=== PATIENT | female | born 1980 | race Two or more races ===

== ENCOUNTER → 2016-06-02 | Outpatient (CLI) | payer OTHER ==
[~2016-06-02] MED LIST: ALBUTEROL17 GM INH; ALOGLIPTIN25 MG PO; BUTALB-ACETAMI1 EACH PO; CARDURA8 MG PO; FIORICET 50-301 EACH PO; FIORINAL 50-321 EACH PO; HUMALOG100 U/M2; HYDROCHLOROTH12.5 MG PO; KCL PO; LEVEMIR FL100 UNIT/1; LIPITOR20 MG PO; LORTAB 5-325 M1 EACH PO; LORTAB 7.5-5001 TAB PO; LOVAZA1 GM PO; METFORMIN HCL500 M1 PO; METOPROLOL/HCTZ PO; OMEPRAZOLE40 M1 PO; TOPAMAX50 MG PO; TOPROL XL100 MG PO; TRIAMTERENE-HC1 EACH PO; ZESTRIL5 MG PO; ZOFRAN PO; ZOLOFT50 MG PO
--- NOTE | ~2016-06-02 | CR181 ---
[facility] A Service of [facility] RADIOLOGY TEXT RESULTS PATIENT: ARLENE YARBROUGH LOCATION: [facility] : [birth year] UNIT #: [id number] AGE: [address]: ALETA AWAN SEX: F ORDER DR: [id number] [facility] [address] [place], [place] [address] [id number] O MR#: [id number] Acc #: [id number] NAME: ARLENE YARBROUGH : 1980 SEX: F STUDY DATE/TIME: 06/02/2016 13:20 UNIT: [facility] ROOM: STUDY DESCRIPTION: CR Lumbar Spine 2 or 3 Views Attending Physician: Rachel Willis Referring Physician: Rachel Willis Ordering Physician: Rachel Willis Primary Care Physician: Alona Wang M.D. MEDICAL IMAGING REPORT This report is preliminary unless electronic signature is present EXAM Lumbar spine 3 views 06/02/2016 HISTORY Low back pain for 1 month with no known injury. FINDINGS AP and lateral projections of the lumbar segment show good mineralization of both anterior and posterior elements. They are all anatomically normal without indication of fracture, dislocation, or malignant change of a sclerotic or lytic type. There is no congenital defect noted. The sacroiliac joints are normal. IMPRESSION Normal lumbar spine. Dictated by... Surendra Mayo M.D. THIS IS AN ELECTRONICALLY VERIFIED REPORT Surendra Mayo M.D. at 06/03/2016 10:32 AM KRT/to TD: 06/02/2016 18:45 JOB #: [id number] MEDICAL IMAGING REPORT Page 1 of 1 COPY
== END | disposition home or self-care (01) ==
LOC: CRAD 12:39
DX: M54.5 Low back pain (principal)
CPT/HCPCS: 72100

== ENCOUNTER → 2016-07-01 | Outpatient (CLI) | payer OTHER ==
--- NOTE | ~2016-07-01 | US5 ---
[facility] A Service of [facility] RADIOLOGY TEXT RESULTS PATIENT: ARLENE YARBROUGH LOCATION: [facility] : 80 UNIT #: [id number] AGE: [address]: ALETA AWAN SEX: F ORDER DR: [id number] [facility] [address] [place], [place] [address] [id number] O MR#: [id number] Acc #: [id number] NAME: ARLENE YARBROUGH : 1980 SEX: F STUDY DATE/TIME: 07/01/2016 11:12 UNIT: [facility] ROOM: STUDY DESCRIPTION: US Abdominal Complete Attending Physician: Rachel Willis Referring Physician: Rachel Willis Ordering Physician: Rachel Willis Primary Care Physician: Alona Wang M.D. MEDICAL IMAGING REPORT This report is preliminary unless electronic signature is present EXAM Abdominal ultrasound complete, 07/01/2016 HISTORY Abdomen pain and swelling for 1 year. Cholecystectomy. FINDINGS Liver demonstrates an increase in echotexture with attenuation of the ultrasound beam characteristic of fatty infiltration. No cystic or solid mass lesions were seen in the liver. The intra and extrahepatic bile ducts are not dilated. The gallbladder is surgically absent as per patient history. The common duct measures 3 mm. The pancreas is normal. The spleen is minimally enlarged measuring 13.7 cm in greatest diameter. The visualized portions of the abdominal aorta and inferior vena cava are within normal limits. The kidneys are normal bilaterally. IMPRESSION 1. Fatty infiltration of the liver. 2. Surgical absence of the gallbladder. 3. Mild splenomegaly. Dictated by... Surendra Mayo M.D. THIS IS AN ELECTRONICALLY VERIFIED REPORT Surendra Mayo M.D. at 07/02/2016 8:05 AM AR/maryanne TD: 07/01/2016 22:13 JOB #: [id number] [facility] A Service of [facility] RADIOLOGY TEXT RESULTS PATIENT: ARLENE YARBROUGH LOCATION: [place] : 80 UNIT #: [id number] AGE: [address]: ALETA AWAN SEX: F ORDER DR: MEDICAL IMAGING REPORT Page 1 of 1 COPY
== END | disposition home or self-care (01) ==
LOC: CGUS 10:30
DX: R10.9 Unspecified abdominal pain (principal); R19.00 Intra-abdominal and pelvic swelling, mass and lump, unspecified site; K76.0 Fatty (change of) liver, not elsewhere classified; R16.1 Splenomegaly, not elsewhere classified; Z90.49 Acquired absence of other specified parts of digestive tract
CPT/HCPCS: 76700

== ENCOUNTER 2016-07-06 12:38 | Emergency (ER) | payer OTHER ==
[~2016-07-06 12:38] MED LIST changes: -ALOGLIPTIN25 MG PO; -BUTALB-ACETAMI1 EACH PO; -FIORICET 50-301 EACH PO; -HYDROCHLOROTH12.5 MG PO; -KCL PO; -LIPITOR20 MG PO; -LORTAB 5-325 M1 EACH PO; -LOVAZA1 GM PO; -METFORMIN HCL500 M1 PO; -METOPROLOL/HCTZ PO; -OMEPRAZOLE40 M1 PO; -TOPROL XL100 MG PO; -ZESTRIL5 MG PO; -ZOFRAN PO
[2016-07-06 13:22] LABS: BASOPHIL% 0.7 % (0-2.5); EOSINOPHIL# 0.1 X10e3 (0-0.7); HEMATOCRIT 36.6 % (35.0-45.0); HEMOGLOBIN 12.4 gm/dL (12.0-16.0); LYMPHOCYTE# 2.1 X10e3 (1.0-3.5); LYMPHOCYTE% 38.8 % (17.0-45.0); MEAN CELL VOLUME 84.9 FL (83-96); MEAN CORPUSCULAR HEMOGLOBIN 28.7 PG (28-34); MEAN CORPUSCULAR HGB CONC 33.8 g/dL (30-36); MEAN PLATELET VOLUME 8.3 FL (6.5-11.5); MONOCYTE# 0.4 X10e3 (0-1.0); MONOCYTE% 6.6 % (3.0-12.0); NEUTROPHIL# 2.9 X10e3 (1.5-7.1); NEUTROPHIL% 52.9 % (40-75); PLATELET COUNT 216 X10e3 (140-420); RED BLOOD COUNT 4.31 X10e (3.90-5.30); RED CELL DISTRIBUTION WIDTH 13.9 % (11.0-15.5); WHITE BLOOD COUNT 5.5 X10e3 (4.0-10.5)
[2016-07-06 13:23] LABS: DIFF IND NO
[2016-07-06 13:51] LABS: URINE SOURCE CLEAN CATCH
[2016-07-06 13:54] LABS: ALBUMIN SERUM 3.8 g/dL (3.5-5.0); BILIRUBIN, DIRECT 0.1 mg/dL (0.0-0.2); BILIRUBIN,INDIRECT 0.4 mg/dL (0.0-0.9); BILIRUBIN,TOTAL 0.5 mg/dL (0.2-2.0); BUN/CREATININE RATIO 16.25; CREATININE SERUM 0.8 mg/dL (0.6-1.4); GLOM FILT RATE Estimated 94.9 mL/min (>60); POTASSIUM 3.5 mmol/L (3.5-5.1); PROTEIN TOTAL SERUM 7.4 g/dL (6.0-8.3)
[2016-07-06 14:02] LABS: URINE APPEARANCE CLOUDY; URINE BLOOD NEG (NEG); URINE COLOR DK YELLOW; URINE GLUCOSE NEG (NEG); URINE KETONE 1+ (NEG); URINE LEUKOCYTE ESTERASE TRACE (NEG); URINE NITRATE NEG (NEG); URINE PROTEIN NEG (NEG); URINE SPECIFIC GRAVITY 1.027 (1.003-1.035)
[2016-07-06 14:04] LABS: CULTURE INDICATED? YES; URINE BACTERIA AUWI 4+ (NEGATIVE); URINE SQUAMOUS EPITHELIAL CELL FEW /[HPF]; UWBCS1 AUWI 25-50 (0-5)
[2016-07-06 14:10] LABS: U HYALINE CASTS AUWI 0-2 /[LPF]
[2016-07-06 14:11] LABS: URINE BILIRUBIN NEG (NEG)
[2016-11-04] MEDS ORDERED: FIORICET 50-301 EACH PO (01:05)
[2016-11-04] MEDS ORDERED: LIPITOR20 MG PO (01:06)
[2016-11-04] MEDS ORDERED: HYDROCHLOROTH12.5 MG PO (01:06)
[2016-11-04] MEDS ORDERED: ALOGLIPTIN25 MG PO (01:06)
[2016-11-04] MEDS ORDERED: TRIAMTERENE-HC1 EACH PO (01:07)
[2016-11-04] MEDS ORDERED: OMEPRAZOLE40 M1 PO (01:08)
[2016-11-04] MEDS ORDERED: BUTALB-ACETAMI1 EACH PO (01:08)
[2016-11-04] MEDS ORDERED: METOPROLOL/HCTZ PO (01:09)
[2016-11-04] MEDS ORDERED: ZOFRAN PO (01:09)
[2016-11-04] MEDS ORDERED: KCL PO (01:10)
[2016-11-04] MEDS ORDERED: ALBUTEROL17 GM INH (01:10)
[2016-11-06] MEDS ORDERED: TOPROL XL100 MG PO (15:27)
[2016-11-06] MEDS ORDERED: ZESTRIL5 MG PO (15:29)
[2016-11-06] MEDS ORDERED: LOVAZA1 GM PO (15:31)
[2016-11-07] MEDS ORDERED: METFORMIN HCL500 M1 PO (11:47)
[2016-11-07] MEDS ORDERED: LORTAB 5-325 M1 EACH PO (11:48)
== END 2016-07-06 14:59 | disposition home or self-care (01) ==
LOC: CED 12:38
PROVIDERS: Emergency Medicine
DX: N10 Acute pyelonephritis (principal); R20.2 Paresthesia of skin; E11.9 Type 2 diabetes mellitus without complications; I10 Essential (primary) hypertension; F17.200 Nicotine dependence, unspecified, uncomplicated; Z90.49 Acquired absence of other specified parts of digestive tract; Z98.890 Other specified postprocedural states; Z79.899 Other long term (current) drug therapy; Z88.5 Allergy status to narcotic agent
CPT/HCPCS: 36415; 80048; 80076; 81003; 83690; 84703; 85025; 87086; 96374; 96376; 99284; J2270

== ENCOUNTER → 2016-08-25 | Outpatient (CLI) | payer OTHER ==
[~2016-08-25] MED LIST changes: +ALOGLIPTIN25 MG PO; +BUTALB-ACETAMI1 EACH PO; +FIORICET 50-301 EACH PO; +HYDROCHLOROTH12.5 MG PO; +KCL PO; +LIPITOR20 MG PO; +LORTAB 5-325 M1 EACH PO; +LOVAZA1 GM PO; +METFORMIN HCL500 M1 PO; +METOPROLOL/HCTZ PO; +OMEPRAZOLE40 M1 PO; +TOPROL XL100 MG PO; +ZESTRIL5 MG PO; +ZOFRAN PO
--- NOTE | ~2016-08-25 | CT4 ---
[facility] A Service of [facility] RADIOLOGY TEXT RESULTS PATIENT: ARLENE YARBROUGH LOCATION: [facility] : 80 UNIT #: [id number] AGE: [address]: Alona Wang MD SEX: F ORDER DR: [id number] [address] [address] [id number] O MR#: [id number] Acc #: [id number] NAME: ARLENE YARBROUGH : 1980 SEX: F STUDY DATE/TIME: 08/25/2016 13:05 UNIT: [facility] ROOM: STUDY DESCRIPTION: CT Abd and Pelv Wo Cont Attending Physician: Alona Wang M.D. Referring Physician: Alona Wang M.D. Ordering Physician: Alona Wang M.D. Primary Care Physician: Alona Wang M.D. MEDICAL IMAGING REPORT This report is preliminary unless electronic signature is present EXAM CT abdomen and pelvis without contrast. INDICATION Generalized upper abdominal pain and swelling for the past several months. PROCEDURE Unenhanced CT of the abdomen and pelvis. This CT exam was performed with one or more of the following radiation dose reduction techniques: automatic exposure control, adjustment of mA and/or kV according to patient size, and iterative reconstruction. COMPARISON STUDIES 10/08/2008 FINDINGS Included lung bases are clear. The liver enlarged measuring 22.6 cm. There is diffuse hepatic steatosis. The spleen enlarged 14.5 cm. Kidneys, adrenal glands, pancreas unremarkable. Previous cholecystectomy. Appendix is unremarkable. Bowel loops nondilated. PELVIS WITHOUT CONTRAST: No pelvic mass or fluid. No aggressive appearing bone lesion. IMPRESSION 1. No acute findings. 2. Hepatosplenomegaly with significant steatosis. Dictated by... [facility] A Service of [facility] RADIOLOGY TEXT RESULTS PATIENT: ARLENE YARBROUGH LOCATION: [facility] : 80 UNIT #: [id number] AGE: [address]: Alona Wang MD SEX: F ORDER DR: Beau Nicholas M.D. THIS IS AN ELECTRONICALLY VERIFIED REPORT Beau Nicholas M.D. at 08/26/2016 7:09 AM Justine TD: 08/25/2016 17:20 JOB #: [id number] MEDICAL IMAGING REPORT Page 1 of 1 COPY
== END | disposition home or self-care (01) ==
LOC: CCAT 12:39
DX: R10.84 Generalized abdominal pain (principal); R18.8 Other ascites; K76.0 Fatty (change of) liver, not elsewhere classified; R16.2 Hepatomegaly with splenomegaly, not elsewhere classified
CPT/HCPCS: 74176

== ENCOUNTER → 2016-10-22 | Outpatient (CLI) | payer OTHER ==
--- NOTE | ~2016-10-22 | CR173 ---
[facility] A Service of [facility] RADIOLOGY TEXT RESULTS PATIENT: ARLENE YARBROUGH LOCATION: [facility] : 80 UNIT #: [id number] AGE: [address]: Joyce Iqbal MD SEX: F ORDER DR: [id number] [facility] [address] [place], [place] [address] [id number] O MR#: [id number] Acc #: [id number] NAME: ARLENE YARBROUGH : 1980 SEX: F STUDY DATE/TIME: 10/22/2016 18:57 UNIT: [facility] ROOM: STUDY DESCRIPTION: CR Knee 3 Views Rt Attending Physician: Joyce Iqbal M.D. Referring Physician: Joyce Iqbal M.D. Ordering Physician: Joyce Iqbal M.D. Primary Care Physician: Alona Wang M.D. MEDICAL IMAGING REPORT This report is preliminary unless electronic signature is present EXAM Right knee 3 views 10/22/2016 HISTORY Right knee pain for 1 year, osteoarthritis right knee. No known injury. FINDINGS AP and lateral projection of the knee shows smooth articular anatomy without indication of fracture or dislocation at the major weight-bearing surface of the knee. There is no indication of radiopaque foreign body about the knee surface or joint effusion. IMPRESSION Normal right knee. Dictated by... Surendra Mayo M.D. THIS IS AN ELECTRONICALLY VERIFIED REPORT Surendra Mayo M.D. at 10/24/2016 7:27 AM Evelyn TD: 10/23/2016 11:17 JOB #: [id number] MEDICAL IMAGING REPORT Page 1 of 1 COPY
--- NOTE | ~2016-10-22 | CR172 ---
[facility] A Service of [facility] RADIOLOGY TEXT RESULTS PATIENT: ARLENE YARBROUGH LOCATION: [facility] : 80 UNIT #: [id number] AGE: [address]: Joyce Iqbal MD SEX: F ORDER DR: [id number] [facility] [address] [place], [place] [address] [id number] O MR#: [id number] Acc #: [id number] NAME: ARLENE YARBROUGH : 1980 SEX: F STUDY DATE/TIME: 10/22/2016 18:57 UNIT: [facility] ROOM: STUDY DESCRIPTION: CR Knee 3 Views Lt Attending Physician: Joyce Iqbal M.D. Referring Physician: Joyce Iqbal M.D. Ordering Physician: Joyce Iqbal M.D. Primary Care Physician: Alona Wang M.D. MEDICAL IMAGING REPORT This report is preliminary unless electronic signature is present EXAM Left knee 3 views 10/22/2016 HISTORY Left knee pain for 1 year, osteoarthritis left knee. No known injury. FINDINGS AP and lateral projection of the knee shows smooth articular anatomy without indication of fracture or dislocation at the major weight-bearing surface of the knee. There is no indication of radiopaque foreign body about the knee surface or joint effusion. IMPRESSION Normal knee. Dictated by... Surendra Mayo M.D. THIS IS AN ELECTRONICALLY VERIFIED REPORT Surendra Mayo M.D. at 10/24/2016 7:27 AM AR/luke TD: 10/23/2016 11:15 JOB #: [id number] MEDICAL IMAGING REPORT Page 1 of 1 COPY
== END | disposition home or self-care (01) ==
LOC: CRAD 18:26
DX: M17.0 Bilateral primary osteoarthritis of knee (principal)
CPT/HCPCS: 73562

== ENCOUNTER → 2016-10-28 | Outpatient (CLI) | payer OTHER ==
--- NOTE | ~2016-10-28 | NM19 ---
[facility] A Service of [facility] RADIOLOGY TEXT RESULTS PATIENT: ARLENE YARBROUGH LOCATION: [facility] : 80 UNIT #: [id number] AGE: [address]: Armaan Trujillo MD SEX: F ORDER DR: [id number] [facility] [address] [place], [place] [address] [id number] O MR#: [id number] Acc #: [id number] NAME: ARLENE YARBROUGH : 1980 SEX: F STUDY DATE/TIME: 10/28/2016 8:43 UNIT: [facility] ROOM: STUDY DESCRIPTION: IA Gastric Emptying Study Attending Physician: Armaan Trujillo M.D. Referring Physician: Armaan Trujillo M.D. Ordering Physician: Armaan Trujillo M.D. Primary Care Physician: Alona Wang M.D. MEDICAL IMAGING REPORT This report is preliminary unless electronic signature is present EXAM Gastric emptying scan 10/28/2016 HISTORY Abdominal pain and abdominal bloating and nausea for 1 year. TECHNIQUE The patient ingested 516 microcuries of Tc-99m tagged sulfur colloid in eggs. Images of the upper abdomen were obtained for 4 hours. FINDINGS After 1 hour, the stomach was 26% empty and after 2 hours, the stomach was 76% empty. After 4 hours, the stomach was 95% empty. Normal range is greater than 60% empty after 2 hours of imaging and greater than 90% empty after 4 hours of imaging. IMPRESSION Normal gastric emptying after 2 and 4 hours of imaging. Dictated by... Surendra Mayo M.D. THIS IS AN ELECTRONICALLY VERIFIED REPORT Surendra Mayo M.D. at 10/29/2016 2:21 PM KRT/meghan TD: 10/28/2016 22:27 JOB #: [id number] MEDICAL IMAGING REPORT Page 1 of 1 COPY
== END | disposition home or self-care (01) ==
LOC: CNUC 08:15
DX: R10.9 Unspecified abdominal pain (principal); E11.9 Type 2 diabetes mellitus without complications; R11.2 Nausea with vomiting, unspecified
CPT/HCPCS: 78264; A9541